=== PATIENT | male | born 1985 | race Caucasian/White ===

== ENCOUNTER 2017-04-14 20:12 | Emergency (ER) | payer OTHER ==
[~2017-04-14] VITALS: Ht 172.7 cm; Wt 74.0 kg
[2017-04-14 20:15] VITALS: BP 127/88; PULSE 104; TEMP 36.5; O2SAT 97; Ht 172.7 cm; Wt 74.0 kg
--- NOTE | 2017-04-14 23:33 | EMERGENCY ROOM VISIT NOTE ---
History Report prepared by Rody: Ana Luisa Kelley Under the Supervision of: Dr. Papo Donovan M.D. First contact with patient: 20:13 Chief Complaint: ALCOHOL OVERDOSE Stated Complaint: ALCOHOL OVERDOSE History of Present Illness The patient is a 31 year old who presents to the Emergency Room with complaints of an episode of alcohol intoxication occurring prior to arrival. The patient states that the police stopped him and said he was "not capable of doing anything himself." The patient denies falling, hurting himself, and vomiting. He notes he only drank alcohol and denies taking anything else. The patient state that he feels fine. He has no complaints. He notes that he has no medical history. He states that he is from [place] and was not planning to stay in [facility]. Source of History: patient Onset: prior to arrival Position: other (global) Quality: other (global) Timing: other (episode) Associated Symptoms: No vomiting Note: The patient denies falling and hurting himself. Review of Systems See HPI for pertinent positives & negatives. A total of 10 systems reviewed and were otherwise negative. Family History No pertinent family history Social History Alcohol Use: occasionally Marital Status: single Housing Status: lives alone Occupation Status: employed Current/Historical Medications No Active Prescriptions or Reported Meds Allergies Coded Allergies: Penicillins (Unverified Allergy, Mild, ?, 04/14/17) Sulfa Drugs (Unverified Allergy, Mild, HIVES, 04/14/17) Sulfamethoxazole (Unverified Allergy, Mild, HIVES, 04/14/17) Trimethoprim (Unverified Allergy, Mild, HIVES, 04/14/17) Physical Exam Vital Signs Date Time Temp Pulse Resp B/P (MAP) Pulse Ox O2 Delivery O2 Flow Rate FiO2 04/14/17 20:15 36.5 104 20 127/88 97 Room Air Physical Exam Constitutional: Vital signs reviewed. Eyes: Pupils are equal round reactive to light. Conjunctiva are noninjected. ENT: Pharynx is clear without erythema or exudate. Mucous membranes are moist. Neck supple without meningeal signs. Respiratory: Clear to auscultation bilaterally. Breath sounds are equal bilaterally. Cardiovascular: Regular rate and rhythm. No rubs or gallops. GI: Soft, nondistended and nontender. Bowel sounds are present. Musculoskeletal: No peripheral edema. No lower extremity tenderness. Integumentary: No cyanosis. Neurological: The patient is awake and alert. He appears intoxicated. Psychiatric: Agitated. Medical Decision & Procedures ED Course 2013: The patient was evaluated in room A12A. A complete history and physical exam was performed. 2143: I reevaluated the patient. He says that he wants to be released immediately and that we have no right to keep him here. I explained that his alcohol level is over 200 and he is intoxicated. I told him that if he has a sober friend to pick him up, has somewhere to stay, or wants to stay here then I have no problem. He stated his right that he thinks this is bull shit and that he doesn't have to discuss his plan with me. Security is at bedside. He is refusing his alcohol level, but his breathalyzer was 226. 230: The patient paid for a hotel room to stay in for the night. Security confirmed this and the patient will be getting a cab to the hotel. The patient will be discharged home. Medical Decision This is a 31-year-old male who presents with alcohol intoxication. I did perform a limited focused review of portions of the patient's old chart on the electronic medical record. The patient has had no recent pertinent visits to this hospital. I did evaluate the patient as noted above. He does appear intoxicated. He is awake and alert and is very agitated about being brought here. I did explain to him that because his breathalyzer test showed his alcohol level over 0.220 we could not release him without some sort of plan for his safety. He stated that he drove here from [place] and has been unable to reach his friends. He has nowhere to stay tonight so we did offer that he sleep here in the emergency department till he was sober enough to go home. He was here for several hours and repeatedly wanted to leave. Initially I did not feel he was safe to go home as he had no plan other than to sleep on a park bench. Later he stated that he would rather stay at a hotel than stay here. He did make arrangements to get a room at a hotel. The security patrol officer did confirm this with the hotel over the telephone. He was therefore sent in a cab to the hotel where he will sleep until he is sober enough to drive. He was able to walk without any difficulty. His speech was not slurred. Medication Reconcilliation Current Medication List: was personally reviewed by me Blood Pressure Screening Patient's blood pressure: Elevated blood pressure Blood pressure disposition: Elevated BP felt to be situational Impression Primary Impression: Alcohol intoxication Scribe Attestation The scribe's documentation has been prepared under my direct and personally reviewed by me in its entirety. I confirm that the note above accurately reflects all work, treatment, procedures, and medical decision making performed by me. Departure Information Dispostion Home / Self-Care Prescriptions No Active Prescriptions or Reported Meds Referrals No Doctor, Assigned (PCP) Forms HOME CARE DOCUMENTATION FORM, IMPORTANT VISIT INFORMATION Patient Instructions My [facility] Additional Instructions Do not drink any alcohol for at least 24 hours. Follow up with your doctor. Your alcohol level was over 0.226. You will not be able to drive for at least 7 hours if not longer. Problem Qualifiers Primary Impression: Alcohol intoxication Complication of substance-induced condition: uncomplicated Qualified Codes: F10.920 - Alcohol use, unspecified with intoxication, uncomplicated
== END 2017-04-14 23:19 | disposition home or self-care (01) ==
LOC: EDBD 20:12 → C.EDA 20:13
DX: F10.920 Alcohol use, unspecified with intoxication, uncomplicated (principal)